=== PATIENT | female | born 1990 | race African-American/Black ===

== ENCOUNTER 2018-09-11 14:18 | Emergency (ER) | payer SELFPAY ==
[~2018-09-11] VITALS: Ht 175.3 cm; Wt 106.6 kg
--- NOTE | 2018-09-11 14:35 | NUR ---
.ED Nurse Note: Pt arrived to ED c/o of "bug bite". Pt states that she woke up with a bug bite 2 days ago. She states that she tried ti "pop it", but nothing came out. Pt is AAOx4 respirations are even and unlabored.
--- NOTE | 2018-09-11 14:50 | Emergency Room Report ---
History of Present Illness General Chief Complaint: Skin Rash/Abscess Source: Patient Present Illness HPI Patient presents with complaints of an area of infection in the right upper back area She has noticed the area for the past 4-5 days Today she had squeezed the area and there was some discharge And presents for further evaluation denies any fevers or chills denies any chest pain or shortness of breath Denies any vomiting Allergies: Coded Allergies: No Known Allergies (Unverified , 09/11/18) Patient History Past Medical History: see triage record Pertinent Family History: none Last Menstrual Period: 08/26/18 Now: No Reviewed Nursing Documentation: PMH: Agreed; PSxH: Agreed Nursing Documentation-PMH Past Medical History: No Stated History Hx Hypertension: Yes Hx Diabetes: Yes - Type 2 Review of Systems All Other Systems: negative except mentioned in HPI Physical Exam Vital Signs Date Time Temp Pulse Resp B/P (MAP) Pulse Ox O2 Delivery O2 Flow Rate FiO2 09/11/18 14:25 100.8 138 20 120/76 97 Room Air Sp02 EP Interpretation: reviewed, normal General Appearance: well appearing, no apparent distress Head: normocephalic, atraumatic Eyes: bilateral eye PERRL, bilateral eye EOMI ENT: normal pharynx Neck: supple Respiratory: lungs clear, no retraction, no accessory muscle use Cardiovascular #1: regular rate, rhythm Gastrointestinal: non tender, soft Musculoskeletal: normal inspection Neurologic: alert, oriented x3 Skin: other - Area of fluctuance in the right upper back region approximately 3 x 3 cm, mid point of fluctuance is palpable no other dermatomal spread Lymphatic: no adenopathy Procedures Incision and Drainage Incision and Drainage : Consent: Verbal Site: Right upper back Blade Size: 11 I & D Procedure: betadine prep, sterile drapes applied, sterile dressing applied, gauze wick placed Wound Location: back Wound's Depth, Shape: into muscle Wound Length (cm): 0 Wound Explored: contaminated Irrigated w/ Saline (ccs): 200 Anesthesia: 1% Lidocaine Volume Anesthetic (ccs): 8 Splint Applied?: No Patient Tolerated: Poor - Patient had difficulty tolerating any slight touch for initiation of lidocaine injection, after significant amount of lidocaine patient still complains of discomfort with slight manipulation. This does limit the further opening of pockets of pus however we did the best with multiple attempts, Complications: None Medical Decision Making Diagnostic Impression: Primary Impression: Abscess Additional Impression: Encounter for incision and drainage procedure ER Course Patient had incision and drainage of the abscess please defer to the note for full specifics patient was not able to tolerate the seizure very well and this was a suboptimal procedure We did have copious amounts of pus however produced packing was placed Patient placed on antibiotics and will have close outpatient follow-up Last Vital Signs Date Time Temp Pulse Resp B/P (MAP) Pulse Ox O2 Delivery O2 Flow Rate FiO2 09/11/18 14:25 100.8 138 20 120/76 97 Room Air Status: improved Disposition: HOME, SELF-CARE Condition: Improved Scripts Ibuprofen* (MOTRIN*) 600 Mg Tablet 600 MG ORAL Q8H PRN for For Pain, #20 TAB 0 Refills Prov: Jose Tilley DO 09/11/18 Trimethoprim/Sulfamethoxazole 160/800* (BACTRIM DS TABLET*) 1 Each Tablet 1 TAB ORAL Q12H, #20 TAB 0 Refills Prov: Jose Tilley DO 09/11/18 Cephalexin* (KEFLEX*) 500 Mg Capsule 500 MG ORAL EVERY 6 HOURS for 10 Days, CAP Prov: Jose Tilley DO 09/11/18 Additional Instructions: Patient is provided with the discharge instructions notified to follow up with primary doctor in the next 2-3 days otherwise return to the er with any worsening symptoms. Please note that this report is being documented using [employer] technology. This can lead to erroneous entry secondary to incorrect interpretation by the dictating instrument. Jose Tilley DO Sep 11, 2018 14:50
[2018-09-11] MEDS ORDERED: Lidocaine 1% Plain 30 ml INJ ONE (15:00)
[2018-09-11] MEDS ORDERED: Cephalexin 500mg cap ORAL ONE (15:30)
[2018-09-11] MEDS ORDERED: Bactrim-DS 1 tab ORAL ONE (15:30)
[2018-09-11] MEDS ORDERED: Bacitracin Oint UD TOPIC ONE (15:30)
[2018-09-11] MEDS ORDERED: BACTRIM DS TAB1 EAC1 ORAL (15:48)
[2018-09-11] MEDS ORDERED: CEPHALEXIN500 MG ORAL (15:48)
[2018-09-11] MEDS ORDERED: IBUPROFEN600 MG ORAL (15:48)
[2018-09-11 15:49] VITALS: BP 122/74
[2018-09-11 15:57] VITALS: BP 122/74
--- NOTE | 2018-09-11 16:00 | NUR ---
ED Nurse Note: Pt cleared by health care Provider for discharge. DC instructions/prescription was given and explained to pt and verbalized understanding of teachings. All medical deviecs such as ID band removed. Pt is AAO x4, ambulatory and left with all personal belongings.
== END 2018-09-11 16:00 | disposition home or self-care (01) ==
LOC: EMR 15:54
DX: L02.212 Cutaneous abscess of back [any part, except buttock and flank] (principal); E11.9 Type 2 diabetes mellitus without complications; I10 Essential (primary) hypertension
CPT/HCPCS: 10060; 82962; 99283; J2001

== ENCOUNTER 2020-08-12 15:15 | Emergency (ER) | payer OTHER ==
[~2020-08-12] VITALS: Ht 175.3 cm; Wt 113.4 kg
[~2020-08-12 15:15] MED LIST: BACTRIM DS TAB1 EAC1 ORAL; CEPHALEXIN500 MG ORAL; IBUPROFEN600 MG ORAL
--- NOTE | 2020-08-12 16:47 | NUR ---
pt arrives to ER with complaints of left foot injury. pt states kicking rock 2 days ago scrapping 5th toe. pt states increasing swelling, warmth, tenderness, and pain since injury.
--- NOTE | 2020-08-12 17:38 | Diagnostic Imaging Report ---
Indication: Foot pain status post injury. Technique: 3 views of the left foot Comparison: None Findings: Question subtle nondisplaced fracture involving the head of the fifth proximal phalanx. There is overlying soft tissue swelling. No additional acute fracture is appreciated. This fragment alignment is maintained. No radiopaque foreign body. IMPRESSION: Question subtle nondisplaced fracture involving the head of the fifth proximal phalanx. Correlate with physical exam.
[2020-08-12] MEDS ORDERED: Morphine Sulfate 4mg/ml Inj (IV USE ONLY) IVP ONE (17:45)
[2020-08-12 17:54] LABS: BASOPHILS % (AUTO) 1.2 % (0.0-2.0); EOSINOPHILS % (AUTO) 0.3 % (0.0-3.0); HEMATOCRIT 48.7 % (37.0-47.0); HEMOGLOBIN 13.7 G/DL (12.0-16.0); LYMPHOCYTES % (AUTO) 22.9 % (20.0-45.0); MEAN CORPUSCULAR VOLUME 92 FL (80-99); MONOCYTES % (AUTO) 3.1 % (1.0-10.0); NEUTROPHILS % (AUTO) 72.4 % (45.0-75.0); PLATELET COUNT 524 K/UL (150-450); RED CELL DISTRIBUTION WIDTH 13.6 % (11.6-14.8); WHITE BLOOD COUNT 12.5 K/UL (4.8-10.8)
[2020-08-12 18:17] LABS: ALANINE AMINOTRANSFERASE 23 U/L (12-78); ALBUMIN 3.8 G/DL (3.4-5.0); ALBUMIN/GLOBULIN RATIO 0.8 (1.0-2.7); ALKALINE PHOSPHATASE 129 U/L (46-116); ANION GAP 5 mmol/L (5-15); ASPARTATE AMINO TRANSFERASE 11 U/L (15-37); BILIRUBIN,TOTAL 0.6 MG/DL (0.2-1.0); BLOOD UREA NITROGEN 6 mg/dL (7-18); CALCIUM 9.4 MG/DL (8.5-10.1); CARBON DIOXIDE 30 MMOL/L (21-32); CHLORIDE 100 MMOL/L (98-107); CKMB < 0.5 NG/ML (0.0-3.6); CREATINE KINASE 76 U/L (26-308); CREATININE 0.8 MG/DL (0.55-1.30); POTASSIUM 3.8 MMOL/L (3.5-5.1); SODIUM 135 MMOL/L (136-145)
--- NOTE | 2020-08-12 18:19 | Emergency Room Report ---
History of Present Illness General Chief Complaint: Lower Extremity Injury Source: Patient (Ivette Ng) Present Illness HPI 29-year-old female with type 1 diabetes currently on insulin here complaining of pain in left foot that started on left fifth toe x2 days after kicking a rock. Obvious infection color changes noted to the left fifth toe. Also cellulitis to left calf noted. Patient rates the pain 10 out of 10 without radiation. Denies tingling or numbness. Patient is neurovascularly intact. Denies other injuries. Has not taken medication for symptom relief. Denies . Denies chest pain, shortness of breath, fever and chills. Patient did not take her insulin this morning. (Ivette Ng) Allergies: Coded Allergies: No Known Allergies (Unverified , 09/11/18) COVID-19 Screening Contact w/high risk pt: No Experienced COVID-19 symptoms?: No COVID-19 Testing performed CONTRACTS OFFICER: No COVID-19 Screening: Negative COVID-19 (Ivette Ng) Patient History Past Medical History: see triage record Past Surgical History: none Pertinent Family History: none Now: No Immunizations: UTD Reviewed Nursing Documentation: PMH: Agreed; PSxH: Agreed (Ivette Ng) Nursing Documentation-PMH Hx Hypertension: Yes Hx Diabetes: Yes - Type 2 (Ivette Ng) Review of Systems All Other Systems: negative except mentioned in HPI (Ivette Ng) Physical Exam Vital Signs Date Time Temp Pulse Resp B/P (MAP) Pulse Ox O2 Delivery O2 Flow Rate FiO2 08/12/20 16:43 98.4 120 18 118/85 (96) 97 Room Air Sp02 EP Interpretation: reviewed, normal General Appearance: no apparent distress, alert, GCS 15, non-toxic Head: normocephalic, atraumatic Eyes: bilateral eye normal inspection, bilateral eye PERRL ENT: no angioedema Neck: supple Respiratory: no respiratory distress, no retraction, no accessory muscle use Cardiovascular #1: regular rate, rhythm, no edema, no murmur Cardiovascular #2: 2+ dorsalis pedis (R), 2+ dorsalis pedis (L) Gastrointestinal: non-distended Musculoskeletal: back normal, no calf tenderness, pelvis stable, swelling - Left foot, other - Infection left fifth toe noted with ulceration Neurologic: alert, motor strength/tone normal, oriented x3, sensory intact, responsive, speech normal Psychiatric: normal inspection, judgement/insight normal Skin: other - Ulceration infection left fifth toe, patient is neurovascularly intact Lymphatic: no adenopathy (Ivette Ng) Medical Decision Making PA Attestation All my diagnosis and treatment plans were reviewed ad discussed with my supervising physician Dr. Ireland (Ivette Ng) Diagnostic Impression: Primary Impression: Cellulitis of foot Additional Impressions: Diabetic toe ulcer in type 1 diabetes mellitus Fracture of fifth toe, left, closed UTI (urinary tract infection) ER Course 29-year-old female with type 1 diabetes currently on insulin here complaining of pain in left foot that started on left fifth toe x2 days after kicking a rock. Obvious infection color changes noted to the left fifth toe. Also cellulitis to left calf noted. Patient rates the pain 10 out of 10 without radiation. Denies tingling or numbness. Patient is neurovascularly intact. Denies other injuries. Has not taken medication for symptom relief. Denies . Denies chest pain, shortness of breath, fever and chills. Patient did not take her insulin this morning. Ddx considered but are not limited to : Cellulitis, diabetic foot ulcer, gangrene infection, sepsis Vital signs: are WNL, pt. is afebrile H&PE are most consistent with:cellulitis and ulceration left foot, fracture left fifth toe, UTI ORDERS: Sepsis order set, foot x-ray, ED INTERVENTIONS: Levaquin, morphine Patient was admitted with diagnosis of cellulitis of foot, ulceration left fifth toe in a diabetic patient to under supervision of : Beka pt stable at time of admission (Ivette Ng) ER Course Patient was discussed with Dr. Dunbar who accepted the patient to [facility]. Patient is currently stable condition. (Dirk Ireland MD) Other X-Ray Diagnostic Results Other X-Ray Diagnostic Results : X-Ray ordered: left foot # of Views/Limited Vs Complete: 3 View Indication: Pain EP Interpretation: Yes PA Xray: Interpretation reviewed, by supervising , and agrees with find ings. Interpretation: other - Fracture left fifth toe Impression: Other - Fracture left fifth toe Electronically Signed by: Ivette VERONICA Scribe Text IMPRESSION: Question subtle nondisplaced fracture involving the head of the fifth proximal phalanx. Correlate with physical exam. (Ivette Ng) Last Vital Signs Date Time Temp Pulse Resp B/P (MAP) Pulse Ox O2 Delivery O2 Flow Rate FiO2 08/12/20 16:43 98.4 120 18 118/85 (96) 97 Room Air (Ivette Ng) Status: improved (Dirk Ireland MD) Disposition: SHORT-TERM HOSP Condition: Stable Referrals: [facility],REFERRING (PCP) Ivette Ng Aug 12, 2020 18:19 Dirk Ireland MD Aug 12, 2020 20:29
[2020-08-12 19:09] LABS: APPEARANCE,URINE SLIGHTLY CLOUDY; BILIRUBIN, URINE NEGATIVE (NEGATIVE); COLOR,URINE PALE YELLOW; GLUCOSE, URINE (UA) 4+ (NEGATIVE); KETONES,URINE NEGATIVE (NEGATIVE); LEUKOCYTE ESTERASE ,URINE NEGATIVE (NEGATIVE); NITRITE,URINE POSITIVE (NEGATIVE); PH,URINE 5 (4.5-8.0); PROTEIN,URINE 2+ (NEGATIVE); UROBILINOGEN,URINE NORMAL MG/DL (0.0-1.0)
[2020-08-12] MEDS ORDERED: Insulin Human Regular 100units/ml 3ml SUBQ ONE (19:15)
--- NOTE | 2020-08-12 19:19 | NUR ---
cbg 355
[2020-08-12] MEDS ORDERED: Morphine Sulfate 2mg/ml Inj(IV/IM USE ONLY) IVP ONE (20:00)
--- NOTE | 2020-08-12 20:04 | NUR ---
Pte complained of pain EDP aware new orders recieved and carried out . Will continue to monitor the patient.
[2020-08-13 00:23] VITALS: BP 105/62
[2020-08-13 02:20] VITALS: BP 143/79
[2020-08-13 03:51] VITALS: BP 145/89
== END 2020-08-13 03:55 | disposition short-term general hospital (02) ==
LOC: EMR 17:02
DX: L03.116 Cellulitis of left lower limb (principal); E10.621 Type 1 diabetes mellitus with foot ulcer; L97.529 Non-pressure chronic ulcer of other part of left foot with unspecified severity; N39.0 Urinary tract infection, site not specified; S92.515A Nondisplaced fracture of proximal phalanx of left lesser toe(s), initial encounter for closed fracture; I10 Essential (primary) hypertension; W22.8XXA Striking against or struck by other objects, initial encounter; Y93.9 Activity, unspecified; Y92.9 Unspecified place or not applicable
CPT/HCPCS: 36415; 73630; 80053; 81003; 81025; 82550; 82553; 82962; 83605; 84484; 85025; 85610; 85730; 86850; 86900; 86901; 87040; 87086; 87181; 93005; 96361; 96365; 96372; 96375; 96376; J1815; J1956; J2270; J7030; Z7502; 99285